=== PATIENT | male | born 1975 | race Caucasian/White ===

== ENCOUNTER → 2021-02-24 | Outpatient (CLI) | payer OTHER ==
--- NOTE | 2021-02-24 19:31 | RAD ---
EXAM: PA, oblique and lateral views of the right hand DATE: 02/24/2021 6:34 PM INDICATION: Reason: RIGHT HAND PAIN, 3RD AND 4TH METACARPAL REGION / Spl. Instructions: / History: . COMPARISON: No Prior FINDINGS: Oblique fracture through the base of the third metacarpal extends into the third CMC joint. Ulnar min us variance. Multifocal IP joint degenerative changes are seen. IMPRESSION: Oblique fracture base of third metacarpal extends into the third CMC joint. No definite CMC subluxati on. Electronically signed by: Abebe Puckett MD (02/24/2021 7:29 PM) DUTCH
== END ==
LOC: PMG 18:23
PROVIDERS: ATTEND Nurse Practitioner Family
DX: S62.302A Unspecified fracture of third metacarpal bone, right hand, initial encounter for closed fracture (principal); X58.XXXA Exposure to other specified factors, initial encounter; Y93.89 Activity, other specified; Y92.89 Other specified places as the place of occurrence of the external cause; Y99.8 Other external cause status
CPT/HCPCS: 73130